=== PATIENT | male | born 1955 | race American Indian/Alaskan Native ===

== ENCOUNTER 2019-02-04 | Emergency (ER) | payer SELFPAY ==
[~2019-02-04] MED LIST: ADRENALIN ONE
[2019-02-04 00:20] VITALS: BP 0/0
--- NOTE | 2019-02-04 00:22 | Emergency Department Report ---
ED CPR HPI - General Stated Complaint: CARDIAC ARREST Time Seen by Provider: 02/04/19 00:18 Source: family, EMS Mode of arrival: Stretcher Limitations: Altered Mental Status, Physical Limitation - History of Present Illness Initial Comments: 63-year-old male presents to the hospital in cardiopulmonary arrest. History obtained from EMS and [id number]. Usdygwgl-hf-lik states she was sleep when the children in the household informed her that the patient was calling out. Numjhgoi-ie-asi then found patient sitting on the side of the bed complaining of not being able to breathe. Patient then had several episodes of vomiting and became unresponsive. EMS was notified and bystander CPR was initiated. EMS was on the scene at 23:36 in estimate that down time was 15 gianni al prior to their arrival. Patient was in asystole upon their arrival. Airway was attempted unsuccessfully and patient presents with bag valve mask ventilations, or airway, and chest compressions in progress. Patient was not hypoglycemic on Accu-Chek. Patient received 2 epinephrine boluses through left lower leg IO prior to arrival and remains in asystole at time of arrival here at 23:58. - Related Data Home Medications Medication Instructions Recorded Confirmed Last Taken Insulin Glargine,Hum.rec.anlog 04/09/13 04/09/13 Unknown [Lantus Solostar] Quinapril(Nf) [Accupril (Nf)] 04/09/13 04/09/13 Unknown glyBURIDE/METFORMIN HCL 04/09/13 04/09/13 Unknown [glyBURIDE-Metformin 1.25-250 mg] Previous Rx's Medication Instructions Recorded Last Taken Type Acetaminophen/Codeine [Tylenol 1 tab PO Q6H PRN #15 tab 09/17/14 Unknown Rx /Codeine # 3 tab] Naproxen [Naprosyn TAB] 500 mg PO BID PRN #20 tablet 09/17/14 Unknown Rx methOCARBAMOL [Robaxin] 500 mg PO BID PRN #20 tab 09/17/14 Unknown Rx Allergies Allergy/AdvReac Type Severity Reaction Status Date / Time No Known Allergies Allergy Unverified 04/09/13 18:14 ED Review of Systems ROS: Stated complaint: CARDIAC ARREST Other details as noted in HPI Comment: Unobtainable due to pts medical conditions ED Past Medical Hx - Past Medical History Hx Hypertension: Yes Hx Diabetes: Yes - Social History Smoking Status: Heavy Tobacco Smoker Substance Use Type: Alcohol - Medications Home Medications: Home Medications Medication Instructions Recorded Confirmed Last Taken Type Insulin Glargine,Hum.rec.anlog 04/09/13 04/09/13 Unknown History [Lantus Solostar] Quinapril(Nf) [Accupril (Nf)] 04/09/13 04/09/13 Unknown History glyBURIDE/METFORMIN HCL 04/09/13 04/09/13 Unknown History [glyBURIDE-Metformin 1.25-250 mg] Acetaminophen/Codeine [Tylenol 1 tab PO Q6H PRN #15 tab 09/17/14 Unknown Rx /Codeine # 3 tab] Naproxen [Naprosyn TAB] 500 mg PO BID PRN #20 tablet 09/17/14 Unknown Rx methOCARBAMOL [Robaxin] 500 mg PO BID PRN #20 tab 09/17/14 Unknown Rx ED Physical Exam - Other Other exam information: General: Unresponsive Head: Atraumatic Eyes: Pupils fixed and dilated ENT: Moist mucous membranes, vomits in airway during intubation Neck: Normal appearance Chest: Apneic, bagged valve mask ventilations in progress CV: Pulseless Abdomen: Soft, normal bowel sounds, nontender, nondistended, no rebound or guarding Back: Normal inspection Extremity: Right AKA, left leg with ant tibia IO Neuro: GCS equals 3, unresponsive Psych: Unresponsive Skin: Warm to touch ED Course Vital Signs 02/04/19 00:15 Pulse Rate 0 L Respiratory 0 L Rate Blood Pressure 0/0 - Intubation Time Out Performed: Yes Sedative: none Laryngoscope: fiberoptic video scope Size: 3 ET Tube Size: 7.5 Tube Secured Depth (cm): 24 Tube Secured Location: teeth Tube Placement Confirmation: visualized tube passing t, equal breath sounds bilat, no breath sounds over epi, confirmation by capnometr Patient Tolerated Procedure: well Intubation Complications: none ED Medical Decision Making - Medical Decision Making Resuscitation efforts continued upon patient arrival. Initial rhythm was asystole. Patient was intubated with glidescope assistance. Patient received 2 additional epinephrine doses, one amp of bicarbonate, an Accu-Chek was confirmed at 432. Patient remained in asystole despite resuscitation. Time of 12: 10 AM. Patient's [id number]-bmn and son in the ER were informed of patient's . - Differential Diagnosis [place], PE, arrhythmia, aspiration, stroke Critical Care Time: No Critical care attestation.: If time is entered above; I have spent that time in minutes in the direct care of this critically ill patient, excluding procedure time. ED Disposition Clinical Impression: Cardiopulmonary arrest Disposition: DC-20 Is pt being admited?: No Does the pt Need Aspirin: No Condition: Stable Time of Disposition: 00:37
== END 2019-02-04 05:09 ==
LOC: ED
DX: I46.9 Cardiac arrest, cause unspecified (principal); I10 Essential (primary) hypertension; E11.9 Type 2 diabetes mellitus without complications; F17.200 Nicotine dependence, unspecified, uncomplicated; Z79.4 Long term (current) use of insulin
CPT/HCPCS: 31500; 82962; 99285; J0171